=== PATIENT | male | born 1970 | race Caucasian/White ===

== ENCOUNTER 2019-03-03 07:35 | Day surgery (SDC) | payer OTHER ==
[~2019-03-03] VITALS: Ht 175.3 cm; Wt 83.5 kg
[~2019-03-03 07:35] MED LIST: ATOR1TAB19 PO; GLIP10TA PO; LIDOCAINE 2% INJ 100 MG/5 ML SDV (FOR ANES.) As Ordered ONE; LISI10TA4 PO; LORA10TA3 PO; MELA1TAB9 PO; METF10004 PO; NS 1,000 ML IV SCH; PROPOFOL 200 MG/20 ML VIAL As Ordered ONE; SIMETHICONE 40MG/0.6ML DROPS 30ML As Ordered ONE; VITA1CAP25 PO
[2019-03-03] MEDS ORDERED: PROPOFOL 200 MG/20 ML VIAL As Ordered ONE (08:53)
--- NOTE | 2019-03-03 09:01 | ROOR ---
Patient Name: Rey Guajardo Procedure Date: 03/03/2019 8:41 AM Date of : 1970 Age: 49 Room: [facility] Gender: Male Note Status: Finalized Procedure: Colonoscopy Indications: Screening for colorectal malignant neoplasm Providers: DO Kenneth San MD: JONATHAN WALKER Requesting Provider: Medicines: Propofol per Anesthesia Complications: No immediate complications. Procedure: Pre-Anesthesia Assessment: - Prior to the procedure, a History and Physical was performed, and patient medications and allergies were reviewed. The patient is competent. The risks and benefits of the procedure and the sedation options and risks were discussed with the patient. All questions were answered and informed consent was obtained. Patient identification and proposed procedure were verified by the physician, the nurse, the anesthesiologist and the cardiothoracic anesthesia technician in the endoscopy suite. Mental Status Examination: alert and oriented. Airway Examination: normal oropharyngeal airway and neck mobility. Respiratory Examination: clear to auscultation. CV Examination: normal. Prophylactic Antibiotics: The patient does not require prophylactic antibiotics. Prior Anticoagulants: The patient has taken no previous anticoagulant or antiplatelet agents. ASA Grade Assessment: II - A patient with mild systemic disease. After reviewing the risks and benefits, the patient was deemed in satisfactory condition to undergo the procedure. The anesthesia plan was to use monitored anesthesia care (MAC). Immediately prior to administration of medications, the patient was re-assessed for adequacy to receive sedatives. The heart rate, respiratory rate, oxygen saturations, blood pressure, adequacy of pulmonary ventilation, and response to care were monitored throughout the procedure. The physical status of the patient was re-assessed after the procedure. The Colonoscope was introduced through the anus and advanced to the cecum, identified by appendiceal orifice and ileocecal valve. The colonoscopy was performed without difficulty. The patient tolerated the procedure well. The quality of the bowel preparation was unsatisfactory. Findings: Non-bleeding internal hemorrhoids were found during retroflexion. The hemorrhoids were small and Grade I (internal hemorrhoids that do not prolapse). A large amount of semi-liquid stool was found in the entire colon, interfering with visualization. Estimated blood loss: none. Impression: - Preparation of the colon was unsatisfactory. - Non-bleeding internal hemorrhoids. - Stool in the entire examined colon. - No specimens collected. Recommendation: - Patient has a contact number available for emergencies. The signs and symptoms of potential delayed complications were discussed with the patient. Return to normal activities tomorrow. Written discharge instructions were provided to the patient. - Repeat colonoscopy in 1 year because the bowel preparation was suboptimal. - Return to my office in 1 year. Hugo Bolaños DO 03/03/2019 9:01:49 AM Electronically signed by Hugo Bolaños DO Number of Addenda: 0 Note Initiated On: 03/03/2019 8:41 AM Estimated Blood Loss: Estimated blood loss: none.
[2019-03-03 09:33] VITALS: BP 107/78
== END 2019-03-03 09:33 | disposition home or self-care (01) ==
LOC: M OPP 07:35
PROVIDERS: ATTEND Surgery
DX: Z12.11 Encounter for screening for malignant neoplasm of colon (principal); K64.0 First degree hemorrhoids; E11.9 Type 2 diabetes mellitus without complications; G47.30 Sleep apnea, unspecified; Z79.84 Long term (current) use of oral hypoglycemic drugs; Z79.899 Other long term (current) drug therapy

== ENCOUNTER 2021-05-15 14:03 | Emergency (ER) | payer OTHER ==
[~2021-05-15] VITALS: Ht 175.3 cm; Wt 68.2 kg
[~2021-05-15 14:03] MED LIST changes: -LIDOCAINE 2% INJ 100 MG/5 ML SDV (FOR ANES.) As Ordered ONE; +LISI10TA22 PO; -LISI10TA4 PO; -NS 1,000 ML IV SCH; -PROPOFOL 200 MG/20 ML VIAL As Ordered ONE; -SIMETHICONE 40MG/0.6ML DROPS 30ML As Ordered ONE
[2021-05-15] MEDS ORDERED: ASPIRIN 81 MG CHEW TABLET PO ONE (14:30)
[2021-05-15] MEDS ORDERED: NS 1,000 ML IV SCH (14:30)
[2021-05-15 14:49] LABS: BASO # 0.1 10^3/uL (0.0-0.2); BASO % 0.5 % (0.0-1.0); EOS # 0.2 10^3/uL (0.0-0.5); EOS % 2.1 % (0.0-3.0); HEMATOCRIT 38.6 % (42.0-52.0); HEMOGLOBIN 13.2 g/dl (13.5-17.5); LYMPH # 2.3 10^3/uL (1.5-5.0); MEAN CORPUSCULAR HEMOGLOBIN 31.1 pg (27.0-33.0); MEAN CORPUSCULAR HGB CONC 34.2 g/dl (32.0-36.5); MEAN CORPUSCULAR VOLUME 90.8 fl (80.0-96.0); MONO # 0.5 10^3/uL (0.0-0.8); MONO % 5.7 % (2.0-8.0); NEUTROPHILS # 6.2 10^3/uL (1.5-8.5); NEUTROPHILS % 66.3 % (36.0-66.0); PLATELET COUNT, AUTOMATED 329 10^3/uL (150-450); RED BLOOD COUNT 4.25 10^6/uL (4.30-6.10); WHITE BLOOD COUNT 9.3 10^3/uL (4.0-10.0)
[2021-05-15 14:59] LABS: INR 0.91; PROTHROMBIN TIME 12.7 SECONDS (12.7-14.5)
[2021-05-15 15:17] LABS: D-DIMER QUANT 280.85 ng/ml (<500)
[2021-05-15 15:23] LABS: ALBUMIN 3.5 GM/DL (3.2-5.2); ALT/SGPT 34 U/L (12-78); BILIRUBIN,DIRECT 0.1 MG/DL (0.0-0.2); BILIRUBIN,TOTAL 0.3 MG/DL (0.2-1.0); BLOOD UREA NITROGEN 32 MG/DL (7-18); CALCIUM LEVEL 8.9 MG/DL (8.5-10.1); CARBON DIOXIDE LEVEL 22 MEQ/L (21-32); CHLORIDE LEVEL 112 MEQ/L (98-107); CREATININE FOR GFR 1.66 MG/DL (0.70-1.30); GLOMERULAR FILTRATION RATE 46.4 (>56); GLUCOSE, FASTING 132 MG/DL (70-100); NT-PRO BNP < 5 PG/ML (<125); POTASSIUM SERUM 4.6 MEQ/L (3.5-5.1); SODIUM LEVEL 142 MEQ/L (136-145); TOTAL PROTEIN 6.3 GM/DL (6.4-8.2)
[2021-05-15 16:00] VITALS: BP 144/70
== END 2021-05-15 16:45 | disposition home or self-care (01) ==
LOC: EDBD 14:03 → M ED 14:03
DX: R07.9 Chest pain, unspecified (principal); E86.0 Dehydration; R00.0 Tachycardia, unspecified; I10 Essential (primary) hypertension; E78.5 Hyperlipidemia, unspecified; E11.9 Type 2 diabetes mellitus without complications; Z82.49 Family history of ischemic heart disease and other diseases of the circulatory system; Z79.84 Long term (current) use of oral hypoglycemic drugs; Z79.811 Long term (current) use of aromatase inhibitors

== ENCOUNTER 2021-06-22 15:36 | Emergency (ER) | payer OTHER ==
[~2021-06-22] VITALS: Ht 175.3 cm; Wt 86.4 kg
[2021-06-22 17:08] LABS: BASO # 0.1 10^3/uL (0.0-0.2); EOS # 0.2 10^3/uL (0.0-0.5); EOS % 3.1 % (0.0-3.0); HEMATOCRIT 38.8 % (42.0-52.0); HEMOGLOBIN 13.2 g/dl (13.5-17.5); LYMPH # 2.3 10^3/uL (1.5-5.0); MEAN CORPUSCULAR HEMOGLOBIN 31.3 pg (27.0-33.0); MEAN CORPUSCULAR VOLUME 91.9 fl (80.0-96.0); MONO # 0.5 10^3/uL (0.0-0.8); MONO % 6.4 % (2.0-8.0); NEUTROPHILS # 3.9 10^3/uL (1.5-8.5); NEUTROPHILS % 56.1 % (36.0-66.0); PLATELET COUNT, AUTOMATED 326 10^3/uL (150-450); RED BLOOD COUNT 4.22 10^6/uL (4.30-6.10)
[2021-06-22 17:53] LABS: ALBUMIN 3.3 GM/DL (3.2-5.2); ALT/SGPT 36 U/L (12-78); BILIRUBIN,DIRECT < 0.1 MG/DL (0.0-0.2); BILIRUBIN,TOTAL 0.2 MG/DL (0.2-1.0); BLOOD UREA NITROGEN 23 MG/DL (7-18); CALCIUM LEVEL 9.1 MG/DL (8.5-10.1); CARBON DIOXIDE LEVEL 26 MEQ/L (21-32); CHLORIDE LEVEL 110 MEQ/L (98-107); CREATININE FOR GFR 1.49 MG/DL (0.70-1.30); GLOMERULAR FILTRATION RATE 52.5 (>56); GLUCOSE, FASTING 142 MG/DL (70-100); LIPASE 567 U/L (73-393); POTASSIUM SERUM 4.8 MEQ/L (3.5-5.1); SODIUM LEVEL 141 MEQ/L (136-145); TOTAL PROTEIN 6.3 GM/DL (6.4-8.2)
[2021-06-22] MEDS ORDERED: ACETAMINOPHEN 325 MG TAB PO ONE (18:30)
[2021-06-22] MEDS ORDERED: NS 1,000 ML IV ONE ×2 (18:30→20:10)
[2021-06-22] MEDS ORDERED: ISOVUE-370 76% 100ML VIAL As Ordered ONE (19:03)
[2021-06-22 20:13] LABS: RSV AMPLIFICATION NEGATIVE (NEGATIVE)
[2021-06-22 20:18] VITALS: BP 141/83
== END 2021-06-22 20:46 | disposition home or self-care (01) ==
LOC: M ED 15:36
DX: E86.0 Dehydration (principal); N17.9 Acute kidney failure, unspecified; R11.2 Nausea with vomiting, unspecified; K21.9 Gastro-esophageal reflux disease without esophagitis; I10 Essential (primary) hypertension; E11.9 Type 2 diabetes mellitus without complications; E78.5 Hyperlipidemia, unspecified; F17.200 Nicotine dependence, unspecified, uncomplicated; Z79.84 Long term (current) use of oral hypoglycemic drugs
CPT/HCPCS: 70450; 71045; 74177; 80048; 80076; 83605; 83690; 85025; 87040; 87631; 96360; 96361; 99284; Q9967

== ENCOUNTER → 2022-01-03 | Outpatient (REF) | LOC: M RAD 14:31 | PROVIDERS: ATTEND Physician Assistant Medical | DX: R07.82 Intercostal pain (principal) ==

== ENCOUNTER 2024-04-03 13:06 | Inpatient (IN) | payer OTHER ==
[~2024-04-03] VITALS: Ht 175.3 cm; Wt 78.6 kg
[~2024-04-03 13:06] MED LIST changes: -MELA1TAB9 PO; +MELA5TAB58 PO
[2024-04-03] MEDS ORDERED: OMEP10CASR PO (13:46)
[2024-04-03] MEDS ORDERED: MELO15TA28 PO (13:46)
[2024-04-03] MEDS ORDERED: INSULANT SC (13:46)
[2024-04-03] MEDS ORDERED: INSUHUMDS SC ×2 (13:46→18:20)
[2024-04-03 13:49] LABS: HEMATOCRIT 40.6 % (42.0-52.0); MEAN CORPUSCULAR HEMOGLOBIN 30.8 pg (27.0-33.0); MEAN CORPUSCULAR HGB CONC 34.5 g/dl (32.0-36.5); MEAN CORPUSCULAR VOLUME 89.4 fl (80.0-96.0); PLATELET COUNT, AUTOMATED 296 10^3/uL (150-450); RED BLOOD COUNT 4.54 10^6/uL (4.30-6.10); WHITE BLOOD COUNT 15.1 10^3/uL (4.0-10.0)
[2024-04-03 14:01] LABS: CALCIUM LEVEL 8.8 MG/DL (8.5-10.1); CK-MB VALUE MASS 2.9 NG/ML (<3.6); CREATININE FOR GFR 4.65 MG/DL (0.70-1.30); MB/CK RELATIVE INDEX 0.32 (< OR =4); POTASSIUM SERUM 4.3 MMOL/L (3.5-5.1)
[2024-04-03 14:18] LABS: LYMPHOCYTES 8 % (16-44); MONOCYTES 7 % (0-5); NEUTROPHILS 79 % (28-66); PLATELET ESTIMATE NORMAL (NORMAL); TOXIC VACUOLATION 1+
[2024-04-03 14:24] LABS: ALBUMIN 2.8 G/DL (3.2-5.2); BILIRUBIN,DIRECT 0.2 MG/DL (<0.4); BILIRUBIN,TOTAL 0.4 MG/DL (0.3-1.2); TOTAL PROTEIN 6.8 G/DL (5.7-8.2)
[2024-04-03] MEDS: NS (Normal Saline) 0.9% 2,450 ML in IV 1 EA IV ONE (14:37)
[2024-04-03 14:50] LABS: PROCALCITONIN 31.83 ng/ml
[2024-04-03] MEDS: cefTRIAXone SOD 2 GM in DEXTROSE 5% (D5W) ADV/MINI-BAG 50 ML IV ONE (14:55)
[2024-04-03 15:03] LABS: CK-MB VALUE MASS 3.2 NG/ML (<3.6)
[2024-04-03 15:05] LABS: MB/CK RELATIVE INDEX 0.36 (< OR =4)
[2024-04-03] MEDS: ALBUTEROL SULFATE 2.5MG/0.5ML INH NEB SOLN INH ONE (15:24)
[2024-04-03] MEDS: IPRATROPIUM 0.5MG/ALBUTEROL 2.5MG INH SOL UD 3ML (DUONEB) NEB ONE (15:24)
[2024-04-03] MEDS: OSELTAMIVIR PHOSPHATE 30MG CAPSULE PO ONE (16:31)
[2024-04-03 17:12] LABS: CK-MB VALUE MASS 3.1 NG/ML (<3.6)
[2024-04-03 17:13] LABS: MB/CK RELATIVE INDEX 0.4 (< OR =4)
[2024-04-03] MEDS ORDERED: GLUCAGON INJ 1MG VIAL SC PRN (17:40)
[2024-04-03] MEDS ORDERED: GLUCOSE 4 GM CHEW PO PRN (17:40)
[2024-04-03] MEDS ORDERED: DEXTROSE 50% 50ML SYRINGE IV PRN (17:40)
[2024-04-03] MEDS: ACETAMINOPHEN 325 MG TAB PO PRN (17:48)
[2024-04-03 17:51] LABS: CALCIUM LEVEL 7.8 MG/DL (8.5-10.1); CREATININE FOR GFR 4.47 MG/DL (0.70-1.30); GLOMERULAR FILTRATION RATE 14.6 (>56); POTASSIUM SERUM 4.6 MMOL/L (3.5-5.1)
[2024-04-03 17:51] LABS: ABG BASE EXCESS -5.5 (-2.0-2.0); ABG HCO3 17.2 MMOL/L (22.0-26.0); ABG O2 SATURATION 96.9 % (95.0-99.0); ABG PARTIAL PRESSURE CO2 26.6 mmHg (35.0-45.0); ABG PARTIAL PRESSURE O2 84.7 mmHg (75.0-100.0); ABG pH (ARTERIAL) 7.429 UNITS (7.350-7.450)
[2024-04-03] MEDS ORDERED: OMEP40CA5 PO (17:53)
[2024-04-03] MEDS: SODIUM BICARBONATE 150 MEQ in D5W 1,000 ML IV SCH (18:08)
[2024-04-03] MEDS ORDERED: HOME MED LIST COMPLETE! XX SCH (18:20)
[2024-04-03 18:40] VITALS: BP 131/73; TEMP 99.7; O2SAT 95
[2024-04-03 20:00] VITALS: BP 134/69; TEMP 101.8; O2SAT 95
[2024-04-03] MEDS: LIDOCAINE 5% (LIDODERM) PATCH TD SCH (20:29)
[2024-04-03] MEDS: INSULIN LISPRO (NovoLOG) PER UNIT SC SCH (20:29)
[2024-04-03] MEDS: ACETAMINOPHEN 500 MG TAB PO ONE (20:30)
[2024-04-03] MEDS: DOXYCYCLINE HYCLATE 100MG TABLET PO SCH (20:30)
[2024-04-03] MEDS: PANTOPRAZOLE 20 MG TAB PO SCH (20:30)
[2024-04-03] MEDS: HEPARIN SOD (PORCINE) 5000UNITS/ML 1ML VIAL/SYRINGE SQ SCH (20:30)
[2024-04-03] MEDS: IPRATROPIUM 0.5MG/ALBUTEROL 2.5MG INH SOL UD 3ML (DUONEB) NEB PRN (20:52)
[2024-04-03] MEDS ORDERED: ATORVASTATIN 10 MG TAB PO SCH (21:00)
[2024-04-03] MEDS: guaiFENesin DM LIQ 10ML UD PO PRN (22:37)
[2024-04-03 23:00] VITALS: TEMP 102.2; O2SAT 95
[2024-04-04] VITALS (20 sets, daily range): BP systolic 107–162; BP diastolic 68–88; TEMP 100.3–101.8; O2SAT 91–99
[2024-04-04] MEDS ORDERED: guaiFENesin 200 MG TAB PO PRN (02:25)
[2024-04-04] MEDS: guaiFENesin 200 MG TAB PO ONE (03:09)
[2024-04-04 05:16] LABS: HEMATOCRIT 37.4 % (42.0-52.0); HEMOGLOBIN 12.8 g/dl (13.5-17.5); MEAN CORPUSCULAR HEMOGLOBIN 30.9 pg (27.0-33.0); MEAN CORPUSCULAR HGB CONC 34.2 g/dl (32.0-36.5); MEAN CORPUSCULAR VOLUME 90.3 fl (80.0-96.0); PLATELET COUNT, AUTOMATED 289 10^3/uL (150-450); RED BLOOD COUNT 4.14 10^6/uL (4.30-6.10); WHITE BLOOD COUNT 10.8 10^3/uL (4.0-10.0)
[2024-04-04 05:41] LABS: CALCIUM LEVEL 7.7 MG/DL (8.5-10.1); CREATININE FOR GFR 3.75 MG/DL (0.70-1.30); GLOMERULAR FILTRATION RATE 17.9 (>56); POTASSIUM SERUM 4.4 MMOL/L (3.5-5.1)
[2024-04-04] MEDS: guaiFENesin 200 MG TAB PO SCH (06:13)
[2024-04-04] MEDS: INSULIN LISPRO (NovoLOG) PER UNIT SC SCH (07:59)
[2024-04-04] MEDS: LR 1,000 ML IV SCH (08:00)
[2024-04-04] MEDS: cefTRIAXone SOD 1 GM in DEXTROSE 5% (D5W) ADV/MINI-BAG 50 ML IV SCH (08:00)
[2024-04-04 15:46] LABS: ABG BASE EXCESS -1.3 (-2.0-2.0); ABG HCO3 23.1 MMOL/L (22.0-26.0); ABG O2 SATURATION 94.3 % (95.0-99.0); ABG PARTIAL PRESSURE CO2 37.8 mmHg (35.0-45.0); ABG PARTIAL PRESSURE O2 71.6 mmHg (75.0-100.0); ABG STANDARD HCO3 23.3 MMOL/L. (22.0-26.0); ABG TOTAL CO2 24.3 MMOL/L (22.0-29.0); ABG pH (ARTERIAL) 7.404 UNITS (7.350-7.450)
[2024-04-04] MEDS: IPRATROPIUM 0.5MG/ALBUTEROL 2.5MG INH SOL UD 3ML (DUONEB) NEB SCH (16:00)
[2024-04-04] MEDS: OSELTAMIVIR PHOSPHATE 30MG CAPSULE PO SCH (16:00)
[2024-04-04] MEDS: ACETAMINOPHEN *IV* 1,000 MG in IV 1 EA IV PRN (16:27)
[2024-04-04] MEDS: PIPERACILLIN/TAZOBACTAM SOD 3.375 GM in DEXTROSE 5% (D5W) ADV/MINI-BAG 50 ML IV SCH (16:32)
[2024-04-04] MEDS: methylPREDNISolone 125MG 2ML VIAL IV SCH (16:43)
[2024-04-04 18:11] LABS: HEMATOCRIT 36.6 % (42.0-52.0); HEMOGLOBIN 12.3 g/dl (13.5-17.5); MEAN CORPUSCULAR HEMOGLOBIN 30.4 pg (27.0-33.0); MEAN CORPUSCULAR HGB CONC 33.6 g/dl (32.0-36.5); MEAN CORPUSCULAR VOLUME 90.6 fl (80.0-96.0); PLATELET COUNT, AUTOMATED 303 10^3/uL (150-450); RED BLOOD COUNT 4.04 10^6/uL (4.30-6.10); WHITE BLOOD COUNT 9.7 10^3/uL (4.0-10.0)
[2024-04-04] MEDS: dexmedeTOMidine 200 MCG in IV 1 EA IV SCH (18:21)
[2024-04-04 18:34] LABS: BLOOD UREA NITROGEN 64 MG/DL (9-23); CALCIUM LEVEL 7.7 MG/DL (8.5-10.1); CARBON DIOXIDE LEVEL 24 MMOL/L (20-31); CHLORIDE LEVEL 107 MMOL/L (98-107); CREATININE FOR GFR 2.93 MG/DL (0.70-1.30); GLOMERULAR FILTRATION RATE 23.8 (>56); GLUCOSE, FASTING 167 MG/DL (60-100); SODIUM LEVEL 143 MMOL/L (136-145)
[2024-04-04 19:25] LABS: PROCALCITONIN >50.00 ng/ml
[2024-04-05] VITALS (102 sets, daily range): BP systolic 75–179; BP diastolic 43–175; TEMP 97.4–102.2; O2SAT 92–99
[2024-04-05] MEDS: NS (Normal Saline) 0.9% 1,000 ML IV ONE (00:36)
[2024-04-05] MEDS ORDERED: METOPROLOL 5 MG/5 ML VIAL As Ordered ONE (00:41)
[2024-04-05] MEDS: METOPROLOL 5 MG/5 ML VIAL IV STA (00:42)
[2024-04-05] MEDS: NS (Normal Saline) 0.9% 1,000 ML IV SCH (01:39)
[2024-04-05 01:45] LABS: MAGNESIUM LEVEL 2.3 MG/DL (1.8-2.4); PHOSPHORUS LEVEL 4.8 MG/DL (2.5-4.9)
[2024-04-05 01:47] LABS: FREE T4 1.45 NG/DL (0.89-1.76); THYROID STIMULATING HORMONE 0.172 uIU/ML (0.55-4.78)
[2024-04-05] MEDS ORDERED: MIDAZOLAM 100MG/100ML-0.9%NACL IV ONE (03:43)
[2024-04-05] MEDS ORDERED: ePHEDrine INJ 50MG/ML 1ML VIAL ONE (04:00)
[2024-04-05] MEDS: SUCCINYLCHOLINE INJ 200MG/10ML VIAL IV STA (04:11)
[2024-04-05] MEDS: propofoL 200 MG/20 ML VIAL IV ONE (04:11)
[2024-04-05] MEDS: NOREPINEPHRINE 4MG IN D5 250ML 4 MG in IV 1 EA IV SCH (04:11)
[2024-04-05] MEDS: LIDOCAINE 2% INJ 100 MG/5 ML SYRINGE IV STA (04:11)
[2024-04-05] MEDS: MIDAZOLAM 100MG/100ML-0.9%NACL 100 MG in IV 1 EA IV SCH (04:15)
[2024-04-05] MEDS ORDERED: FENTANYL DRIP LOCK BOX KEY 1 EACH XX PRN (04:35)
[2024-04-05] MEDS: fentaNYL CITRATE/NaCl 1,000 MCG in IV 1 EA IV SCH (04:45)
[2024-04-05] MEDS: MIDAZOLAM INJ 2MG/2ML VIAL IV ONE (05:37)
[2024-04-05 05:50] LABS: HEMATOCRIT 40.9 % (42.0-52.0); HEMOGLOBIN 13.3 g/dl (13.5-17.5); MEAN CORPUSCULAR HEMOGLOBIN 30.4 pg (27.0-33.0); MEAN CORPUSCULAR HGB CONC 32.5 g/dl (32.0-36.5); MEAN CORPUSCULAR VOLUME 93.4 fl (80.0-96.0); PLATELET COUNT, AUTOMATED 353 10^3/uL (150-450); RED BLOOD COUNT 4.38 10^6/uL (4.30-6.10); WHITE BLOOD COUNT 11.2 10^3/uL (4.0-10.0)
[2024-04-05] MEDS ORDERED: PROPOFOL 1,000 MG/100 ML VIAL As Ordered ONE (05:56)
[2024-04-05 06:10] LABS: ABG BASE EXCESS -10.1 (-2.0-2.0); ABG HCO3 14.7 MMOL/L (22.0-26.0); ABG PARTIAL PRESSURE CO2 29.8 mmHg (35.0-45.0); ABG STANDARD HCO3 16.6 MMOL/L. (22.0-26.0); ABG TOTAL CO2 15.7 MMOL/L (22.0-29.0); ABG pH (ARTERIAL) 7.312 UNITS (7.350-7.450)
[2024-04-05] MEDS: METOPROLOL 5 MG/5 ML VIAL IV SCH (06:17)
[2024-04-05 06:30] LABS: BLOOD UREA NITROGEN 77 MG/DL (9-23); CALCIUM LEVEL 7.6 MG/DL (8.5-10.1); CARBON DIOXIDE LEVEL 19 MMOL/L (20-31); CHLORIDE LEVEL 111 MMOL/L (98-107); CPK CREATINE PHOSPHOKINASE 1308 U/L (46-171); CREATININE FOR GFR 2.93 MG/DL (0.70-1.30); GLOMERULAR FILTRATION RATE 23.8 (>56); GLUCOSE, FASTING 248 MG/DL (60-100); POTASSIUM SERUM 5.1 MMOL/L (3.5-5.1); PROCALCITONIN >50.00 ng/ml; SODIUM LEVEL 144 MMOL/L (136-145)
[2024-04-05] MEDS ORDERED: VERAPAMIL 5MG/2ML VIAL As Ordered ONE (07:48)
[2024-04-05] MEDS: VERAPAMIL 5MG/2ML VIAL IV STA (07:51)
[2024-04-05] MEDS ORDERED: EPINEPHrine INJ 1 MG/ML 1ML AMP As Ordered ONE (08:00)
[2024-04-05] MEDS ORDERED: dexmedeTOMIDine (4MCG/ML)200MCG/50ML BTL (PRECEDEX) As Ordered ONE (08:57)
[2024-04-05 10:00] LABS: HEMATOCRIT 40.4 % (42.0-52.0); MEAN CORPUSCULAR HGB CONC 32.2 g/dl (32.0-36.5); MEAN CORPUSCULAR VOLUME 96.4 fl (80.0-96.0); PLATELET COUNT, AUTOMATED 445 10^3/uL (150-450); RED BLOOD COUNT 4.19 10^6/uL (4.30-6.10); WHITE BLOOD COUNT 15.3 10^3/uL (4.0-10.0)
[2024-04-05] MEDS: propofoL 1,000 MG in IV 1 EA IV SCH (10:14)
[2024-04-05] MEDS ORDERED: dexmedeTOMidine 200 MCG in IV 1 EA IV SCH (10:30)
[2024-04-05 10:31] LABS: ALBUMIN 2.2 G/DL (3.2-5.2); BILIRUBIN,TOTAL 0.3 MG/DL (0.3-1.2); CREATININE FOR GFR 3.18 MG/DL (0.70-1.30); GLOMERULAR FILTRATION RATE 21.7 (>56); MAGNESIUM LEVEL 2.7 MG/DL (1.8-2.4); PHOSPHORUS LEVEL 7.8 MG/DL (2.5-4.9); POTASSIUM SERUM 4.7 MMOL/L (3.5-5.1); TOTAL PROTEIN 6.4 G/DL (5.7-8.2)
[2024-04-05] MEDS: SODIUM BICARBONATE 150 MEQ in STERILE WATER LITER BAG 1,000 ML IV SCH (11:04)
[2024-04-05] MEDS: VANCOMYCIN 1,000 MG/200 ML IV BAG *LOAD IV ONE (12:06)
[2024-04-05] MEDS ORDERED: AMIODARONE HCL 150 MG/100 ML PREMIXED BAG (NEXTERONE) As Ordered ONE (12:12)
[2024-04-05] MEDS: AMIODARONE HCL 150 MG in IV 1 EA IV STA (12:18)
[2024-04-05 12:28] LABS: ABG BASE EXCESS -14.5 (-2.0-2.0); ABG HCO3 11.7 MMOL/L (22.0-26.0); ABG O2 SATURATION 97.1 % (95.0-99.0); ABG PARTIAL PRESSURE CO2 29.4 mmHg (35.0-45.0); ABG STANDARD HCO3 13.5 MMOL/L. (22.0-26.0); ABG TOTAL CO2 12.6 MMOL/L (22.0-29.0)
[2024-04-05 12:29] LABS: ABG pH (ARTERIAL) 7.219 UNITS (7.350-7.450)
[2024-04-05] MEDS: AMIODARONE HCL 360 MG in IV 1 EA IV SCH ×2 (12:38→18:33)
[2024-04-05] MEDS ORDERED: SODIUM BICARBONATE 8.4% INJ 50ML SYRINGE As Ordered ONE (13:03)
[2024-04-05] MEDS: SODIUM BICARBONATE 8.4% INJ 50ML SYRINGE IV STA ×3 (13:12→13:13)
[2024-04-05] MEDS: LR 1,000 ML IV SCH ×2 (13:30→17:32)
[2024-04-05] MEDS: MIDAZOLAM INJ 2MG/2ML VIAL IV PRN (13:56)
[2024-04-05 15:23] LABS: ABG BASE EXCESS -10.1 (-2.0-2.0); ABG HCO3 13.7 MMOL/L (22.0-26.0); ABG O2 SATURATION 94.8 % (95.0-99.0); ABG PARTIAL PRESSURE CO2 25.2 mmHg (35.0-45.0); ABG PARTIAL PRESSURE O2 84.6 mmHg (75.0-100.0); ABG STANDARD HCO3 16.4 MMOL/L. (22.0-26.0); ABG TOTAL CO2 14.5 MMOL/L (22.0-29.0); ABG pH (ARTERIAL) 7.354 UNITS (7.350-7.450); IONIZED CALCIUM 3.9 MG/DL (4.5-5.3)
[2024-04-05] MEDS: DOXYCYCLINE HYCLATE 100 MG in DEXTROSE 5% (D5W) MINI-BAG PLU 100 ML IV SCH (15:29)
[2024-04-05 15:30] LABS: HEMATOCRIT 37.7 % (42.0-52.0); HEMOGLOBIN 12.6 g/dl (13.5-17.5); MEAN CORPUSCULAR HEMOGLOBIN 31.4 pg (27.0-33.0); MEAN CORPUSCULAR HGB CONC 33.4 g/dl (32.0-36.5); PLATELET COUNT, AUTOMATED 397 10^3/uL (150-450); RED BLOOD COUNT 4.01 10^6/uL (4.30-6.10); WHITE BLOOD COUNT 16.3 10^3/uL (4.0-10.0)
[2024-04-05 15:53] LABS: D-DIMER QUANT 3.74 ug/mL (<0.5); INR 1.1; PARTIAL THROMBOPLASTIN TIME 32.7 SECONDS (24.8-34.2); PROTHROMBIN TIME 14.5 SECONDS (12.5-14.5)
[2024-04-05 16:44] LABS: ALBUMIN 1.9 G/DL (3.2-5.2); BILIRUBIN,TOTAL 0.3 MG/DL (0.3-1.2); CALCIUM LEVEL 7.4 MG/DL (8.5-10.1); CREATININE FOR GFR 2.55 MG/DL (0.70-1.30); GLOMERULAR FILTRATION RATE 27.9 (>56); MAGNESIUM LEVEL 2.4 MG/DL (1.8-2.4); POTASSIUM SERUM 3.6 MMOL/L (3.5-5.1); TOTAL PROTEIN 5.5 G/DL (5.7-8.2)
[2024-04-05] MEDS: PANTOPRAZOLE 40MG VIAL IV SCH (17:14)
[2024-04-05] MEDS: CALCIUM GLUCONATE 1,000 MG in DEXTROSE 5% (D5W) MINI-BAG PLU 100 ML IV ONE (17:15)
[2024-04-05 18:04] LABS: ABG BASE EXCESS -4.2 (-2.0-2.0); ABG O2 SATURATION 97.4 % (95.0-99.0); ABG PARTIAL PRESSURE CO2 34.4 mmHg (35.0-45.0); ABG PARTIAL PRESSURE O2 103.3 mmHg (75.0-100.0); ABG TOTAL CO2 21.1 MMOL/L (22.0-29.0); ABG pH (ARTERIAL) 7.383 UNITS (7.350-7.450)
[2024-04-05] MEDS: BUDESONIDE 0.5 MG/2 ML INHALATION SUSPENSION NEB SCH (20:22)
[2024-04-05] MEDS: HEPARIN SOD (PORCINE) 5000UNITS/ML 1ML VIAL/SYRINGE SQ SCH (21:16)
[2024-04-05] MEDS: VANCOMYCIN HCL 500 MG in DEXTROSE 5% (D5W) MINI-BAG PLU 100 ML IV SCH (22:23)
[2024-04-06] VITALS (79 sets, daily range): BP systolic 93–154; BP diastolic 49–88; TEMP 96.6–100.4; O2SAT 89–96
[2024-04-06 04:35] LABS: ABG BASE EXCESS 1.7 (-2.0-2.0); ABG HCO3 24.5 MMOL/L (22.0-26.0); ABG O2 SATURATION 97.8 % (95.0-99.0); ABG PARTIAL PRESSURE CO2 32.7 mmHg (35.0-45.0); ABG PARTIAL PRESSURE O2 98.6 mmHg (75.0-100.0); ABG TOTAL CO2 25.5 MMOL/L (22.0-29.0); ABG pH (ARTERIAL) 7.492 UNITS (7.350-7.450)
[2024-04-06 04:43] LABS: HEMOGLOBIN 12.4 g/dl (13.5-17.5); MEAN CORPUSCULAR HEMOGLOBIN 30.8 pg (27.0-33.0); MEAN CORPUSCULAR HGB CONC 34.4 g/dl (32.0-36.5); MEAN CORPUSCULAR VOLUME 89.6 fl (80.0-96.0); PLATELET COUNT, AUTOMATED 354 10^3/uL (150-450); RED BLOOD COUNT 4.02 10^6/uL (4.30-6.10); WHITE BLOOD COUNT 13.9 10^3/uL (4.0-10.0)
[2024-04-06 05:11] LABS: CALCIUM LEVEL 7.4 MG/DL (8.5-10.1); CREATININE FOR GFR 2.25 MG/DL (0.70-1.30); GLOMERULAR FILTRATION RATE 32.3 (>56); MAGNESIUM LEVEL 2.6 MG/DL (1.8-2.4); PHOSPHORUS LEVEL 4.1 MG/DL (2.5-4.9); POTASSIUM SERUM 3.6 MMOL/L (3.5-5.1)
[2024-04-06] MEDS: VANCOMYCIN HCL 500 MG in DEXTROSE 5% (D5W) MINI-BAG PLU 100 ML IV SCH (05:44)
[2024-04-06] MEDS: INSULIN LISPRO (NovoLOG) PER UNIT SC ONE (05:45)
[2024-04-06] MEDS: OSELTAMIVIR PHOSPHATE 30MG CAPSULE PO SCH (09:00)
[2024-04-06] MEDS: INSULIN LISPRO (NovoLOG) PER UNIT SC SCH (12:41)
[2024-04-06] MEDS: ceFAZolin SOD 2 GM in IV 1 EA IV SCH (16:36)
[2024-04-06] MEDS: OSELTAMIVIR 6 MG/ML SUSP NG ONE (16:56)
[2024-04-06] MEDS ORDERED: INSULIN REGULAR 100UNITS IN 0.9% SODIUM CHLORIDE 100ML IVBAG As Ordered ONE (18:05)
[2024-04-06] MEDS: INSULIN REGULAR IN 0.9 % NACL 100 UNIT in IV 1 EA IV SCH (18:21)
[2024-04-06] MEDS: KETOROLAC 30 MG/ML 1ML VIAL IV ONE (18:27)
[2024-04-06] MEDS: KCL 20MEQ in NS 1000ML 1,000 ML IV SCH (18:27)
[2024-04-06 19:38] LABS: IMMUNOGLOBULIN G 613 MG/DL (650-1600)
[2024-04-06 19:53] LABS: HEMOGLOBIN A1c 7.1 % (4.0-6.0)
[2024-04-06 19:58] LABS: HEPATITIS B SURFACE ANTIGEN NEGATIVE (NEGATIVE)
[2024-04-06 20:11] LABS: HIV 1&2 SCREEN NEGATIVE (NEGATIVE)
[2024-04-06 20:19] LABS: HEPATITIS C VIRUS ABY INDEX < 0.02 INDEX (<0.8)
[2024-04-06] MEDS: INSULIN IV RATE CHANGE DOCUMENTATION ML/HR XX SCH (21:41)
[2024-04-06] MEDS: OSELTAMIVIR 6 MG/ML SUSP NG SCH (23:28)
[2024-04-07] VITALS (48 sets, daily range): BP systolic 65–162; BP diastolic 37–81; TEMP 97.9–100.1; O2SAT 90–94
[2024-04-07 03:40] LABS: ABG BASE EXCESS 5.3 (-2.0-2.0); ABG HCO3 28.9 MMOL/L (22.0-26.0); ABG O2 SATURATION 98.4 % (95.0-99.0); ABG PARTIAL PRESSURE CO2 38.4 mmHg (35.0-45.0); ABG PARTIAL PRESSURE O2 124.8 mmHg (75.0-100.0); ABG STANDARD HCO3 29.3 MMOL/L. (22.0-26.0); ABG TOTAL CO2 30.1 MMOL/L (22.0-29.0); ABG pH (ARTERIAL) 7.494 UNITS (7.350-7.450)
[2024-04-07 03:43] LABS: HEMATOCRIT 34.8 % (42.0-52.0); HEMOGLOBIN 11.9 g/dl (13.5-17.5); MEAN CORPUSCULAR HGB CONC 34.2 g/dl (32.0-36.5); MEAN CORPUSCULAR VOLUME 90.6 fl (80.0-96.0); PLATELET COUNT, AUTOMATED 352 10^3/uL (150-450); RED BLOOD COUNT 3.84 10^6/uL (4.30-6.10); WHITE BLOOD COUNT 13.3 10^3/uL (4.0-10.0)
[2024-04-07 04:25] LABS: CALCIUM LEVEL 7.5 MG/DL (8.5-10.1); CREATININE FOR GFR 2.14 MG/DL (0.70-1.30); GLOMERULAR FILTRATION RATE 34.2 (>56); POTASSIUM SERUM 3.7 MMOL/L (3.5-5.1)
[2024-04-07] MEDS: dexmedeTOMidine 200 MCG in IV 1 EA IV SCH (12:35)
[2024-04-07] MEDS ORDERED: SODIUM CHLORIDE 0.9% INJ 10 ML SYR IV PRN (14:15)
[2024-04-07] MEDS: FUROSEMIDE 40MG/4ML VIAL IV ONE (14:49)
[2024-04-07] MEDS: SODIUM CHLORIDE 0.9% INJ 10 ML SYR IV SCH (17:34)
[2024-04-07] MEDS: NS IV SCH (19:54)
[2024-04-07] MEDS: FENTANYL CITRATE IV SCH (19:54)
[2024-04-08] VITALS (28 sets, daily range): BP systolic 117–174; BP diastolic 64–87; TEMP 97.2–99; O2SAT 91–96
[2024-04-08 05:13] LABS: HEMATOCRIT 33.1 % (42.0-52.0); HEMOGLOBIN 11.3 g/dl (13.5-17.5); MEAN CORPUSCULAR HEMOGLOBIN 31.6 pg (27.0-33.0); MEAN CORPUSCULAR HGB CONC 34.1 g/dl (32.0-36.5); MEAN CORPUSCULAR VOLUME 92.5 fl (80.0-96.0); PLATELET COUNT, AUTOMATED 370 10^3/uL (150-450); RED BLOOD COUNT 3.58 10^6/uL (4.30-6.10)
[2024-04-08 05:37] LABS: CALCIUM LEVEL 7.7 MG/DL (8.5-10.1); CREATININE FOR GFR 1.84 MG/DL (0.70-1.30); GLOMERULAR FILTRATION RATE 40.7 (>56)
[2024-04-08 06:06] LABS: ABG BASE EXCESS 4.1 (-2.0-2.0); ABG PARTIAL PRESSURE CO2 34.6 mmHg (35.0-45.0); ABG PARTIAL PRESSURE O2 100.8 mmHg (75.0-100.0); ABG STANDARD HCO3 28.1 MMOL/L. (22.0-26.0); ABG TOTAL CO2 28.1 MMOL/L (22.0-29.0)
[2024-04-08] MEDS: hydrALAZINE 20MG/ML 1ML VIAL IV PRN (10:34)
[2024-04-08] MEDS: FUROSEMIDE 40MG/4ML VIAL IV ONE ×2 (11:01→19:42)
[2024-04-08] MEDS: IPRATROPIUM 0.5MG/ALBUTEROL 2.5MG INH SOL UD 3ML (DUONEB) NEB SCH (12:50)
[2024-04-08 14:43] LABS: HEPATITIS B CORE ANTIBODY IGG NON-REACTIVE (NON-REACTIVE); HEPATITIS B SURF AB QUANT 52 mIU/mL (> OR = 10)
[2024-04-08 16:30] LABS: CALCIUM LEVEL 8.1 MG/DL (8.5-10.1); CREATININE FOR GFR 1.71 MG/DL (0.70-1.30); GLOMERULAR FILTRATION RATE 44.3 (>56); MAGNESIUM LEVEL 2.3 MG/DL (1.8-2.4); PHOSPHORUS LEVEL 3.1 MG/DL (2.5-4.9); POTASSIUM SERUM 4.2 MMOL/L (3.5-5.1)
[2024-04-08] MEDS: D5W 1,000 ML IV SCH (19:42)
[2024-04-08] MEDS: CHLORASEPTIC SPRAY MT PRN (21:06)
[2024-04-08] MEDS: ACETAMINOPHEN 650MG SUPP PR ONE (23:12)
[2024-04-09] VITALS (15 sets, daily range): BP systolic 125–159; BP diastolic 74–84; TEMP 98.4–100; O2SAT 91–96
[2024-04-09 04:41] LABS: HEMATOCRIT 34.3 % (42.0-52.0); HEMOGLOBIN 11.5 g/dl (13.5-17.5); MEAN CORPUSCULAR HEMOGLOBIN 30.7 pg (27.0-33.0); MEAN CORPUSCULAR HGB CONC 33.5 g/dl (32.0-36.5); MEAN CORPUSCULAR VOLUME 91.7 fl (80.0-96.0); PLATELET COUNT, AUTOMATED 413 10^3/uL (150-450); RED BLOOD COUNT 3.74 10^6/uL (4.30-6.10); WHITE BLOOD COUNT 18.3 10^3/uL (4.0-10.0)
[2024-04-09 05:04] LABS: CALCIUM LEVEL 8.3 MG/DL (8.5-10.1); CREATININE FOR GFR 1.67 MG/DL (0.70-1.30); GLOMERULAR FILTRATION RATE 45.5 (>56); POTASSIUM SERUM 3.4 MMOL/L (3.5-5.1)
[2024-04-09] MEDS: KCL 10MEQ/100ML SWI (KRUN) 10 MEQ in IV 1 EA IV SCH ×2 (05:46→11:44)
[2024-04-09] MEDS: methylPREDNISolone 125MG 2ML VIAL IV SCH (08:24)
[2024-04-09] MEDS ORDERED: GLUCAGON INJ 1MG VIAL SC PRN (10:50)
[2024-04-09] MEDS ORDERED: GLUCOSE 4 GM CHEW PO PRN (10:50)
[2024-04-09] MEDS ORDERED: DEXTROSE 50% 50ML SYRINGE IV PRN (10:50)
[2024-04-09] MEDS: amLODIPine 5 MG TAB PO SCH (11:42)
[2024-04-09] MEDS: LEVEMIR (INSULIN DETEMIR) 1 UNITS/0.01ML SC SCH (11:42)
[2024-04-09] MEDS: INSULIN LISPRO (NovoLOG) PER UNIT SC SCH ×2 (11:43→20:27)
[2024-04-09] MEDS: ceFAZolin SOD 2 GM in IV 1 EA IV SCH (11:44)
[2024-04-09] MEDS: METOPROLOL TART 25 MG TABLET PO ONE (14:30)
[2024-04-09 15:08] LABS: C REACTIVE PROTEIN QUANTITATIV 4.18 MG/DL (<1.0)
[2024-04-09 15:20] LABS: PROCALCITONIN 23.71 ng/ml
[2024-04-09] MEDS: METOPROLOL TART 25 MG TABLET PO SCH (20:21)
[2024-04-09] MEDS: APIXABAN 5 MG TAB (ELIQUIS) PO SCH (20:21)
[2024-04-09] MEDS: OSELTAMIVIR PHOSPHATE 30MG CAPSULE PO SCH (20:21)
[2024-04-10] VITALS (8 sets, daily range): BP systolic 125–140; BP diastolic 75–84; TEMP 98.5–99.7; O2SAT 92–96
[2024-04-10 05:14] LABS: BASO # 0.1 10^3/uL (0.0-0.2); BASO % 0.4 % (0.0-1.0); EOS % 0.3 % (0.0-3.0); HEMATOCRIT 33.3 % (42.0-52.0); HEMOGLOBIN 11.1 g/dl (13.5-17.5); LYMPH # 2.5 10^3/uL (1.5-5.0); LYMPH % 18.6 % (24.0-44.0); MEAN CORPUSCULAR HEMOGLOBIN 30.8 pg (27.0-33.0); MEAN CORPUSCULAR HGB CONC 33.3 g/dl (32.0-36.5); MEAN CORPUSCULAR VOLUME 92.5 fl (80.0-96.0); MONO # 0.5 10^3/uL (0.0-0.8); MONO % 3.9 % (2.0-8.0); NEUTROPHILS # 9.4 10^3/uL (1.5-8.5); NEUTROPHILS % 69.9 % (36.0-66.0); PLATELET COUNT, AUTOMATED 402 10^3/uL (150-450); WHITE BLOOD COUNT 13.4 10^3/uL (4.0-10.0)
[2024-04-10 05:44] LABS: ALBUMIN 1.7 G/DL (3.2-5.2); BILIRUBIN,TOTAL 0.4 MG/DL (0.3-1.2); C REACTIVE PROTEIN QUANTITATIV 5.09 MG/DL (<1.0); CALCIUM LEVEL 8.2 MG/DL (8.5-10.1); CREATININE FOR GFR 1.58 MG/DL (0.70-1.30); GLOMERULAR FILTRATION RATE 48.5 (>56); POTASSIUM SERUM 3.7 MMOL/L (3.5-5.1); TOTAL PROTEIN 4.8 G/DL (5.7-8.2)
[2024-04-10] MEDS ORDERED: methylPREDNISolone 40MG 1ML VIAL IV SCH (09:00)
[2024-04-10 09:22] LABS: PROCALCITONIN 8.51 ng/ml
[2024-04-10] MEDS: KCL 20MEQ IN D5W 1000ML 1,000 ML IV SCH (11:22)
[2024-04-10] MEDS: CEPHALEXIN 500 MG CAP PO SCH (17:27)
[2024-04-10] MEDS: LORATADINE 10 MG TAB PO SCH (21:46)
[2024-04-11] VITALS (7 sets, daily range): BP systolic 120–142; BP diastolic 71–85; TEMP 96.3–98.7; O2SAT 92–97
[2024-04-11 05:53] LABS: BASO % 0.2 % (0.0-1.0); EOS # 0.2 10^3/uL (0.0-0.5); EOS % 2.1 % (0.0-3.0); HEMATOCRIT 32.4 % (42.0-52.0); HEMOGLOBIN 10.4 g/dl (13.5-17.5); LYMPH # 2.5 10^3/uL (1.5-5.0); MEAN CORPUSCULAR HEMOGLOBIN 30.4 pg (27.0-33.0); MEAN CORPUSCULAR HGB CONC 32.1 g/dl (32.0-36.5); MEAN CORPUSCULAR VOLUME 94.7 fl (80.0-96.0); MONO # 0.4 10^3/uL (0.0-0.8); MONO % 3.9 % (2.0-8.0); NEUTROPHILS # 7.2 10^3/uL (1.5-8.5); NEUTROPHILS % 65.9 % (36.0-66.0); PLATELET COUNT, AUTOMATED 401 10^3/uL (150-450); RED BLOOD COUNT 3.42 10^6/uL (4.30-6.10)
[2024-04-11 06:20] LABS: ALBUMIN 1.7 G/DL (3.2-5.2); BILIRUBIN,TOTAL 0.4 MG/DL (0.3-1.2); CALCIUM LEVEL 7.9 MG/DL (8.5-10.1); CREATININE FOR GFR 1.34 MG/DL (0.70-1.30); GLOMERULAR FILTRATION RATE 58.7 (>56); MAGNESIUM LEVEL 1.6 MG/DL (1.8-2.4); POTASSIUM SERUM 4.8 MMOL/L (3.5-5.1); TOTAL PROTEIN 4.7 G/DL (5.7-8.2)
[2024-04-11] MEDS: guaiFENesin ER TABLET 600 MG TAB PO SCH (10:38)
[2024-04-11] MEDS: SODIUM CHLORIDE HYPERTONIC 3% 4ML NEB SOL INH SCH (13:37)
[2024-04-11] MEDS: RAMELTEON 8 MG TAB (ROZEREM) PO PRN (21:14)
[2024-04-11] MEDS: METOPROLOL TART 25 MG TABLET PO SCH (21:16)
[2024-04-12 03:55] VITALS: BP 125/72; TEMP 98.8; O2SAT 95
[2024-04-12 05:33] LABS: BASO % 0.2 % (0.0-1.0); EOS # 0.2 10^3/uL (0.0-0.5); EOS % 2.1 % (0.0-3.0); HEMATOCRIT 31.8 % (42.0-52.0); HEMOGLOBIN 10.3 g/dl (13.5-17.5); LYMPH # 2.1 10^3/uL (1.5-5.0); LYMPH % 20.5 % (24.0-44.0); MEAN CORPUSCULAR HEMOGLOBIN 30.7 pg (27.0-33.0); MEAN CORPUSCULAR HGB CONC 32.4 g/dl (32.0-36.5); MEAN CORPUSCULAR VOLUME 94.6 fl (80.0-96.0); MONO # 0.5 10^3/uL (0.0-0.8); MONO % 4.6 % (2.0-8.0); NEUTROPHILS % 68.2 % (36.0-66.0); PLATELET COUNT, AUTOMATED 417 10^3/uL (150-450); RED BLOOD COUNT 3.36 10^6/uL (4.30-6.10); WHITE BLOOD COUNT 10.2 10^3/uL (4.0-10.0)
[2024-04-12 06:00] LABS: ALBUMIN 1.7 G/DL (3.2-5.2); BILIRUBIN,TOTAL 0.4 MG/DL (0.3-1.2); C REACTIVE PROTEIN QUANTITATIV 2.71 MG/DL (<1.0); CREATININE FOR GFR 1.35 MG/DL (0.70-1.30); GLOMERULAR FILTRATION RATE 58.2 (>56); MAGNESIUM LEVEL 1.6 MG/DL (1.8-2.4); POTASSIUM SERUM 5.1 MMOL/L (3.5-5.1); TOTAL PROTEIN 4.7 G/DL (5.7-8.2)
[2024-04-12 08:00] VITALS: BP 146/74; TEMP 98.8; O2SAT 98
[2024-04-12] MEDS: MAG SULF 1GM/100ML (MAG RUN) 1 GM in IV 1 EA IV SCH (08:54)
[2024-04-12 10:50] VITALS: O2SAT 95
[2024-04-12 12:04] VITALS: BP 113/69; TEMP 98.7; O2SAT 94
[2024-04-12 15:57] VITALS: BP 119/75; TEMP 98.8; O2SAT 94
[2024-04-12 20:03] VITALS: BP 128/68; TEMP 100.1; O2SAT 92
[2024-04-13 03:23] VITALS: BP 135/71; TEMP 99.5; O2SAT 95
[2024-04-13 06:19] LABS: BASO % 0.2 % (0.0-1.0); EOS # 0.1 10^3/uL (0.0-0.5); EOS % 1.3 % (0.0-3.0); HEMATOCRIT 30.5 % (42.0-52.0); HEMOGLOBIN 10.1 g/dl (13.5-17.5); LYMPH # 2.4 10^3/uL (1.5-5.0); LYMPH % 23.7 % (24.0-44.0); MEAN CORPUSCULAR HEMOGLOBIN 31.2 pg (27.0-33.0); MEAN CORPUSCULAR HGB CONC 33.1 g/dl (32.0-36.5); MEAN CORPUSCULAR VOLUME 94.1 fl (80.0-96.0); MONO # 0.7 10^3/uL (0.0-0.8); MONO % 6.7 % (2.0-8.0); NEUTROPHILS # 6.5 10^3/uL (1.5-8.5); NEUTROPHILS % 65.4 % (36.0-66.0); PLATELET COUNT, AUTOMATED 497 10^3/uL (150-450); RED BLOOD COUNT 3.24 10^6/uL (4.30-6.10)
[2024-04-13 06:33] LABS: C REACTIVE PROTEIN QUANTITATIV 2.01 MG/DL (<1.0)
[2024-04-13 06:36] LABS: ALBUMIN 1.9 G/DL (3.2-5.2); BILIRUBIN,TOTAL 0.4 MG/DL (0.3-1.2); CALCIUM LEVEL 8.3 MG/DL (8.5-10.1); CREATININE FOR GFR 1.38 MG/DL (0.70-1.30); GLOMERULAR FILTRATION RATE 56.7 (>56); MAGNESIUM LEVEL 1.7 MG/DL (1.8-2.4); POTASSIUM SERUM 4.7 MMOL/L (3.5-5.1); TOTAL PROTEIN 5.2 G/DL (5.7-8.2)
[2024-04-13 08:03] VITALS: BP 128/71; TEMP 99.5; O2SAT 91
[2024-04-13 08:52] VITALS: BP 128/71
[2024-04-13] MEDS ORDERED: METO25TA4 PO (09:43)
[2024-04-13] MEDS ORDERED: CEPH500C PO (09:43)
[2024-04-13] MEDS ORDERED: ELIQ5TAB PO (09:43)
[2024-04-13 09:49] VITALS: O2SAT 94
[2024-04-13] MEDS ORDERED: LEVA15HF2 INH (09:52)
[2024-04-13] MEDS: NEOSPORIN OINT 0.9 GM PKT TOP ONE (12:32)
== END 2024-04-13 14:10 | disposition home or self-care (01) | DRG 871 ==
LOC: M ED 13:06 → M ED INP 17:05 → M ICU 18:32 → M PCU 04-10 22:20
PROVIDERS: ADMIT Student in an Organized Health Care Education/Training Program; ATTEND Internal Medicine
PROC: 30233J1 Transfusion of Nonautologous Serum Albumin into Peripheral Vein, Percutaneous Approach (ICD-10-PCS; principal; 2024-04-05)
PROC: 0B9J8ZX Drainage of Left Lower Lung Lobe, Via Natural or Artificial Opening Endoscopic, Diagnostic (ICD-10-PCS; 2024-04-05)
PROC: 0B9D8ZX Drainage of Right Middle Lung Lobe, Via Natural or Artificial Opening Endoscopic, Diagnostic (ICD-10-PCS; 2024-04-05)
PROC: 06HM33Z Insertion of Infusion Device into Right Femoral Vein, Percutaneous Approach (ICD-10-PCS; 2024-04-05)
PROC: B246ZZZ Ultrasonography of Right and Left Heart (ICD-10-PCS; 2024-04-05)
PROC: 5A1945Z Respiratory Ventilation, 24-96 Consecutive Hours (ICD-10-PCS; 2024-04-05)
PROC: 04HY32Z Insertion of Monitoring Device into Lower Artery, Percutaneous Approach (ICD-10-PCS; 2024-04-05)
PROC: 5A2204Z Restoration of Cardiac Rhythm, Single (ICD-10-PCS; 2024-04-06)
DX: A41.9 Sepsis, unspecified organism (principal); J10.00 Influenza due to other identified influenza virus with unspecified type of pneumonia; J96.01 Acute respiratory failure with hypoxia; R65.21 Severe sepsis with septic shock; N17.0 Acute kidney failure with tubular necrosis; J15.211 Pneumonia due to Methicillin susceptible Staphylococcus aureus; E44.0 Moderate protein-calorie malnutrition; I24.89 Other forms of acute ischemic heart disease; E87.4 Mixed disorder of acid-base balance; M62.82 Rhabdomyolysis; I48.19 Other persistent atrial fibrillation; E87.0 Hyperosmolality and hypernatremia; G72.81 Critical illness myopathy; I12.9 Hypertensive chronic kidney disease with stage 1 through stage 4 chronic kidney disease, or unspecified chronic kidney disease; E78.5 Hyperlipidemia, unspecified; E11.22 Type 2 diabetes mellitus with diabetic chronic kidney disease; N18.9 Chronic kidney disease, unspecified; K21.9 Gastro-esophageal reflux disease without esophagitis; R19.7 Diarrhea, unspecified; E86.0 Dehydration; E88.09 Other disorders of plasma-protein metabolism, not elsewhere classified; R00.0 Tachycardia, unspecified; E11.65 Type 2 diabetes mellitus with hyperglycemia; D64.9 Anemia, unspecified; R13.10 Dysphagia, unspecified; Z79.4 Long term (current) use of insulin; Z79.84 Long term (current) use of oral hypoglycemic drugs; Z79.899 Other long term (current) drug therapy

== ENCOUNTER → 2024-07-22 | Outpatient (CLI) | payer OTHER ==
[~2024-07-22] MED LIST changes: +CEPH500C PO; +ELIQ5TAB PO; +INSUHUMDS SC; +INSULANT SC; +LEVA15HF2 INH; +MELO15TA28 PO; +METO25TA4 PO; +OMEP10CASR PO; +OMEP40CA5 PO
== END ==
LOC: M SLEEP 20:00
PROVIDERS: ATTEND Physician Assistant Medical
DX: G47.33 Obstructive sleep apnea (adult) (pediatric) (principal)

== ENCOUNTER → 2024-08-23 | Outpatient (CLI) | payer OTHER | LOC: M PLAIMG 07:59 | PROVIDERS: ATTEND Internal Medicine Pulmonary Disease | DX: R91.8 Other nonspecific abnormal finding of lung field (principal); J98.11 Atelectasis ==

== ENCOUNTER → 2024-09-09 | Outpatient (CLI) | payer OTHER | LOC: M CARPUL 08:40 | PROVIDERS: ATTEND Internal Medicine Pulmonary Disease | DX: R06.02 Shortness of breath (principal) ==

== ENCOUNTER → 2025-01-04 | Outpatient (CLI) | payer OTHER | LOC: M PLAIMG 07:35 | PROVIDERS: ATTEND Internal Medicine Pulmonary Disease | DX: R91.8 Other nonspecific abnormal finding of lung field (principal) ==